=== PATIENT | female | born 1975 | race Caucasian/White ===

== ENCOUNTER 2019-12-22 15:04 | Emergency (ER) | payer OTHER ==
[~2019-12-22] VITALS: Ht 165.1 cm; Wt 105.2 kg
[2019-12-22 16:41] VITALS: BP 124/84
== END 2019-12-22 16:41 | disposition home or self-care (01) ==
LOC: ED 15:04
DX: S93.402A Sprain of unspecified ligament of left ankle, initial encounter (principal); X58.XXXA Exposure to other specified factors, initial encounter; Y93.89 Activity, other specified; Y92.89 Other specified places as the place of occurrence of the external cause; Y99.8 Other external cause status
CPT/HCPCS: Q0092

== ENCOUNTER → 2020-02-02 | Outpatient (CLI) | payer OTHER ==
[2020-02-02 11:01] LABS: BASOPHIL % 0.4 % (0-2); PLATELET COUNT 295 x10^3mcL (130-400); RED CELL DISTRIBUTION WIDTH 13.2 % (11.5-14.5)
[2020-02-02 11:12] LABS: C REACTIVE PROTEIN 1.2 mg/dL (<=0.9); CALCIUM 8.8 mg/dL (8.5-10.1); PHOSPHOROUS 3.3 mg/dL (2.5-4.9); URIC ACID 3.9 mg/dL (2.6-6.0)
[2020-02-02 11:17] LABS: ALBUMIN 3.7 g/dL (3.4-5.0); ALKALINE PHOSPHATASE 103 U/L (46-116); ALT/SGPT 18 U/L (14-59); AST/SGOT 15 U/L (15-37); BILIRUBIN DIRECT 0.11 mg/dL (0.0-0.2); BILIRUBIN TOTAL 0.57 mg/dL (0.20-1.00); CALCIUM 8.8 mg/dL (8.5-10.1); CHLORIDE SERUM 104 mmol/L (98-107); CHOLESTEROL 196 mg/dL (<200); CREATININE SERUM 0.8 mg/dL (0.6-1.0); GFR1 > 60 mL/min; GLUCOSE SERUM 89 mg/dL (74-106); POTASSIUM SERUM 3.8 mmol/L (3.5-5.1); SODIUM SERUM 139 mmol/L (136-145); TOTAL PROTEIN, SERUM 7.5 g/dL (6.4-8.2); TRIGLYCERIDES 97 mg/dL (<150)
[2020-02-02 11:19] LABS: CHOLESTEROL/HDL RATIO 3.2; HDL CHOLESTEROL 61 mg/dL (40-60)
[2020-02-02 11:21] LABS: FREE T4 1.2 ng/dL (0.76-1.46); FREE THYROXINE INDEX 3.3 ug/dL (1.4-4.5); T4(THYROXINE) 9.3 ug/dL (4.7-13.3)
[2020-02-02 11:39] LABS: T3 TOTAL 1.44 ng/mL
[2020-02-03 09:09] LABS: RHEUMATOID ARTHRITIS FACTOR 10.8 IU/mL (0.0-13.9)
== END | disposition home or self-care (01) ==
LOC: LB 10:30
PROVIDERS: ATTEND Internal Medicine
DX: Z00.00 Encounter for general adult medical examination without abnormal findings (principal)
CPT/HCPCS: 84439; 86431

== ENCOUNTER → 2020-02-09 | Outpatient (CLI) | payer OTHER | END | disposition home or self-care (01) | LOC: MI 13:02 | PROVIDERS: ATTEND Psychiatry & Neurology Neurology | PROC: B030ZZZ Magnetic Resonance Imaging (MRI) of Brain (ICD-10-PCS; principal; 2020-02-09) | DX: G43.709 Chronic migraine without aura, not intractable, without status migrainosus (principal); G51.39 Clonic hemifacial spasm, unspecified ==